=== PATIENT | female | born 1990 | race Hispanic/Latino ===

== ENCOUNTER 2018-04-07 06:00 | Day surgery (SDC) | payer BC ==
[2018-04-06 12:32] VITALS: BMI 31.8
[2018-04-07] MEDS ORDERED: Neomycin-Polymyxin 1 ML AMP ONE (06:41)
[2018-04-07] MEDS ORDERED: Bupivacaine PF 0.5% 30 ML VIAL ONE (06:41)
[2018-04-07] MEDS ORDERED: Fentanyl 100 MCG/2 ML VIAL ONE ×3 (07:09→09:51)
[2018-04-07] MEDS ORDERED: CEFAZOLIN 2 GM/50 ML BAG ONE (07:27)
[2018-04-07] MEDS ORDERED: HYDROcodone/Acetaminophen 5/325 mg Tablet ONE (12:28)
[2018-04-07] MEDS ORDERED: Promethazine HCl 25 MG/ML VIAL ONE (12:34)
--- NOTE | 2018-04-07 16:02 | OP ---
DATE OF PROCEDURE: 04/07/2018 PREOPERATIVE DIAGNOSIS: Bilateral painful bunions. POSTOPERATIVE DIAGNOSIS: Bilateral painful bunions. PROCEDURE PERFORMED: Bilateral bunionectomy. ANESTHESIA: General. DESCRIPTION OF PROCEDURE: The patient was given preoperative IV antibiotics, taken to the operating room, placed in supine position. Satisfactory general anesthesia was performed. Both feet, ankle, and legs were sterilely prepped and draped in usual fashion. The left foot was initially addressed. The left foot, ankle, and leg were exsanguinated and tourniquet at the proximal left leg was raised to 250 mmHg. Longitudinal incision was made over the 1st metatarsophalangeal joint down the distal aspect of the 1st metatarsal. Blunt dissection was made down to the thickened capsule and bursa on the medial aspect of the metatarsophalangeal joint. Portion of it approximately 4 mm was cut out of it. Periosteal elevation was performed. The joint was inspected and the joint itself had good articular cartilage. The bony bump on the medial aspect of the 1st metatarsal head was removed with an osteotome and smoothed down with a rongeur. A 2-cm incision was then made over the dorsum of the 1st web space and the soft tissue was released from the lateral aspect of the sesamoid and also from the lateral aspect of the proximal phalanx and the capsule of the 1st metatarsophalangeal joint allowing for the great toe to easily be moved into varus. Two smaller incisions were made just lateral to the 2nd metatarsal and under fluoroscopic visualization, two TightRope's were placed decreasing the intermetatarsal angle with the #2 FiberWire and the metal on the lateral aspect of the 2nd metatarsal and the medial aspect of the 1st metatarsal. The capsule was then tightened on the medial aspect of the 1st metatarsophalangeal joint and placing the greater toe in a much better position with just few degrees of valgus. The wounds were copiously irrigated. The foot was then checked using the C-arm, which verified good placement of the metal anchors that were attached to the #2 FiberWire and proper position of the great toe. Wounds were irrigated with antibiotic solution and then closed using 0 Vicryl in interrupted simple and [id number] sutures to repair the capsule on the medial aspect of 1st metatarsal and then the skin was closed with 3-0 Rapide. The wounds were then infiltrated with a total of 10 mL of 0.5% Marcaine plain. Sterile dressing was applied using Xeroform, 4x4s, Kerlix, and an Osorio wrap. Tourniquet was released and then the exact same procedure was performed on the right great toe. The patient was then awakened, extubated, and transferred to recovery room in stable condition. ESTIMATED BLOOD LOSS: None. COMPLICATION: None. Tourniquet time on the left was 43 minutes and on the right was 41 minutes. DISCHARGE MEDICATION: [place] 10 one every 6 hours as needed for pain #50. The patient may ambulate in her postoperative shoes, ambulating by putting most of her weight mainly in the heel. She will follow up in my office in 2 weeks. Job ID: [id number]
[2018-04-07] MEDS ORDERED: Lidocaine 1% PF 5 ML VIAL ONE (16:38)
[2018-04-07] MEDS ORDERED: PROPOFOL 200 MG/20 ML VIAL ONE (16:38)
[2018-04-07] MEDS ORDERED: Dexamethasone 20 MG/5 ML VIAL ONE (16:38)
[2018-04-07] MEDS ORDERED: Ondansetron PF 4 MG/2 ML Vial ONE (16:38)
[2018-04-07] MEDS ORDERED: Ketorolac Tromethamine 30 MG/ML VIAL ONE (16:38)
== END 2018-04-07 14:04 | disposition home or self-care (01) ==
LOC: SDC 06:00
PROVIDERS: ATTEND Orthopaedic Surgery
PROC: 0QBQ0ZZ Excision of Right Toe Phalanx, Open Approach (ICD-10-PCS; principal; 2018-04-07)
PROC: 0QBR0ZZ Excision of Left Toe Phalanx, Open Approach (ICD-10-PCS; principal; 2018-04-07)
DX: M21.611 Bunion of right foot (principal); M21.612 Bunion of left foot
CPT/HCPCS: 76001; 96374; J1100; J1885; J2001; J2405; J2550; J2704; J3010; S0020

== ENCOUNTER 2019-01-26 00:58 | Emergency (ER) | payer BC ==
[2019-01-26] MEDS ORDERED: Acetaminophen 500 MG TAB ONE (01:47)
--- NOTE | 2019-01-26 07:43 | RAD ---
3 views left ankle: 01/26/2019 COMPARISON: None HISTORY: Fall, trauma, pain FINDINGS: No fracture or dislocation. No radiopaque foreign body or subcutaneous gas. IMPRESSION: No acute findings.
== END 2019-01-26 01:53 | disposition home or self-care (01) ==
LOC: ERS 00:58
DX: S93.402A Sprain of unspecified ligament of left ankle, initial encounter (principal); X50.1XXA Overexertion from prolonged static or awkward postures, initial encounter

== ENCOUNTER 2021-10-12 13:29 | Emergency (ER) | payer BC | END 2021-10-12 14:41 | disposition home or self-care (01) | LOC: ERS 13:29 | DX: L55.0 Sunburn of first degree (principal) | CPT/HCPCS: 99282 ==

== ENCOUNTER 2021-11-08 09:25 | Emergency (ER) | payer BC ==
[2021-11-08] MEDS ORDERED: Ibuprofen 200 MG TAB ONE (09:31)
[2021-11-08] MEDS ORDERED: Acetaminophen 500 MG TAB ONE (09:31)
[2021-11-08] MEDS ORDERED: Bupivacaine 0.25% 10 ML VIAL ONE ×2 (11:07→11:08)
[2021-11-08] MEDS ORDERED: HYDROcodone/Acetaminophen 10/325 mg Tablet ONE (11:57)
[2021-11-08] MEDS ORDERED: Ketamine 50 MG/ML (10ML VIAL) ONE (12:34)
[2021-11-08] MEDS ORDERED: Ondansetron PF 4 MG/2 ML Vial ONE (12:34)
== END 2021-11-08 14:37 | disposition home or self-care (01) ==
LOC: ERS 09:25
DX: S52.571A Other intraarticular fracture of lower end of right radius, initial encounter for closed fracture (principal); X58.XXXA Exposure to other specified factors, initial encounter
CPT/HCPCS: 25605; 96374; 99152; J2405; S0020

== ENCOUNTER 2021-11-13 09:26 | Outpatient (CLI) | payer BC ==
[2021-11-13 10:29] LABS: BHCG - Serum Negative (NEGATIVE); Pregs Control Bar Appear? YES (CONTROL BAR)
[2021-11-13 10:30] LABS: Pregs Control Background? CLEAR/WHITE (CLR/WHITE)
== END 2021-11-13 09:27 | disposition home or self-care (01) ==
LOC: LABBT 09:26
PROVIDERS: ATTEND Orthopaedic Surgery Hand Surgery
DX: Z20.822 Contact with and (suspected) exposure to COVID-19 (principal)
CPT/HCPCS: 84703; 87811

== ENCOUNTER 2021-11-16 07:31 | Day surgery (SDC) | payer BC ==
[2021-11-16] MEDS ORDERED: Lidocaine 1% MPF 2 ML VIAL ONE (08:10)
[2021-11-16] MEDS ORDERED: Midazolam HCl 2 mg/2 ml Vial ONE (08:16)
[2021-11-16] MEDS ORDERED: Fentanyl 100 MCG/2 ML VIAL ONE (08:16)
[2021-11-16] MEDS ORDERED: Bacitracin Zinc Ointment 30 gm TUBE ONE (10:10)
[2021-11-16] MEDS ORDERED: Bupivacaine PF 0.5% 30 ML VIAL ONE (10:10)
[2021-11-16] MEDS ORDERED: Promethazine HCl 25 MG/ML VIAL ONE (10:15)
[2021-11-16] MEDS ORDERED: fentaNYL Citrate/PF 100 MCG/2 ML SYRINGE ONE (10:15)
[2021-11-16] MEDS ORDERED: Sodium Chloride 0.9% 100 ML ONE (10:19)
[2021-11-16] MEDS ORDERED: CEFAZOLIN 2 GM VIAL ONE (10:19)
[2021-11-16] MEDS ORDERED: Dexamethasone 20 MG/5 ML VIAL ONE (10:26)
[2021-11-16] MEDS ORDERED: Ketorolac Tromethamine 30 MG/ML VIAL ONE (10:26)
[2021-11-16] MEDS ORDERED: Lidocaine 1% PF 5 ML VIAL ONE (10:26)
[2021-11-16] MEDS ORDERED: ePHEDrine 50 MG/ML VIAL ONE (10:26)
[2021-11-16] MEDS ORDERED: Ondansetron PF 4 MG/2 ML Vial ONE (10:26)
[2021-11-16] MEDS ORDERED: Bupivacaine HCl 0.5%/Epinephrine 1:200,000/PF 30 ml Vial ONE (10:26)
[2021-11-16] MEDS ORDERED: ePHEDrine Sulfate 50 MG/10 ML VIAL ONE (12:42)
[2021-11-16] MEDS ORDERED: Promethazine HCl 25 MG/ML VIAL IM PRN (13:47)
[2021-11-16] MEDS ORDERED: HYDROmorphone 2 MG/ML VIAL SLOW IVP PRN (13:47)
[2021-11-16] MEDS ORDERED: Ondansetron HCl/PF 4 MG/2 ML Vial IVP PRN (13:47)
[2021-11-16] MEDS ORDERED: Promethazine HCl 25 MG/ML VIAL IVPB PRN (13:47)
[2021-11-16 17:37] LABS: ALT (SGPT) 28 U/L (8-55); AST (SGOT) 16 U/L (5-34); Albumin 4.5 g/dL (3.5-5.0); Alkaline Phosphatase 87 U/L (40-110); Anion Gap 15 mmol/L (10-20); BUN (Urea Nitrogen) 12 mg/dL (7.0-18.7); Bilirubin, Total 0.3 mg/dL (0.2-1.2); Calc. Creatinine Clearance 0 mL/min (70-130); Calcium 9.5 mg/dL (7.8-10.44); Carbon Dioxide 21 mmol/L (22-29); Chloride 105 mmol/L (98-107); Estimated GFR 100; Globulin 3.6 g/dL (2.4-3.5); Glucose 143 mg/dL (70-105); Potassium 3.3 mmol/L (3.5-5.1); Protein, Total 8.1 g/dL (6.0-8.3); Sodium 138 mmol/L (136-145)
== END 2021-11-16 17:50 | disposition home or self-care (01) ==
LOC: SDC 07:31
PROVIDERS: ATTEND Orthopaedic Surgery Hand Surgery
PROC: 0PSL04Z Reposition Left Ulna with Internal Fixation Device, Open Approach (ICD-10-PCS; principal; 2021-11-16)
PROC: 0PSJ04Z Reposition Left Radius with Internal Fixation Device, Open Approach (ICD-10-PCS; principal; 2021-11-16)
DX: S52.572A Other intraarticular fracture of lower end of left radius, initial encounter for closed fracture (principal); S52.615A Nondisplaced fracture of left ulna styloid process, initial encounter for closed fracture; W18.2XXA Fall in (into) shower or empty bathtub, initial encounter
CPT/HCPCS: 71045; 76000; 80053; 93005; 93010; C1713; C1776; C1894; J0690; J1100; J1885; J2250; J2405; J2550; J3010; J3490; S0020

== ENCOUNTER 2021-11-17 14:07 | Emergency (ER) | payer BC ==
[2021-11-17] MEDS ORDERED: Ondansetron ODT 4 MG TAB ONE (15:05)
[2021-11-17] MEDS ORDERED: Morphine 4 MG/ML VIAL ONE (15:05)
== END 2021-11-17 15:57 | disposition home or self-care (01) ==
LOC: ERS 14:07
DX: G89.18 Other acute postprocedural pain (principal); M25.532 Pain in left wrist; Z79.899 Other long term (current) drug therapy
CPT/HCPCS: 96372; 99283; J2270; Q0162

== ENCOUNTER 2022-05-13 09:19 | Outpatient (CLI) | payer BC ==
[2022-05-13 10:33] LABS: Hemoglobin 10.8 g/dL (12.0-15.5); Mean Corpuscular HGB CONC 30.9 g/dL (32.0-36.0); Mean Corpuscular Hemoglobin 23.4 pg (27.0-33.0); Mean Corpuscular Volume 75.9 fl (81.6-98.3); Mean Platelet Volume 11.1 fl (7.4-10.4); Platelet Count 199 10x3/uL (150-450); RBC Distribution Width 17.4 % (11.5-14.5); Red Blood Cell (RBC) Count 4.61 10x6/uL (3.90-5.03); White Blood Cell (WBC) Count 6.8 10x3/uL (3.5-10.5)
[2022-05-13 11:37] LABS: BHCG - Serum Negative (NEGATIVE); Pregs Control Background? CLEAR/WHITE (CLR/WHITE); Pregs Control Bar Appear? YES (CONTROL BAR)
== END 2022-05-13 09:20 | disposition home or self-care (01) ==
LOC: LABBT 09:19
PROVIDERS: ATTEND Orthopaedic Surgery Hand Surgery
DX: Z01.812 Encounter for preprocedural laboratory examination (principal); T84.84XA Pain due to internal orthopedic prosthetic devices, implants and grafts, initial encounter
CPT/HCPCS: 84703; 85027

== ENCOUNTER 2022-05-14 06:45 | Day surgery (SDC) | payer BC, OTHER ==
[2022-05-13 14:32] VITALS: BMI 29.5
[2022-05-14] MEDS ORDERED: Bacitracin Zinc Ointment 30 gm TUBE ONE (07:59)
[2022-05-14] MEDS ORDERED: Bupivacaine PF 0.5% 30 ML VIAL ONE (07:59)
[2022-05-14] MEDS ORDERED: Neomycin-Polymyxin 1 ML AMP ONE (07:59)
[2022-05-14] MEDS ORDERED: HYDROmorphone 0.5 MG/0.5 ML SYRINGE ONE (08:13)
[2022-05-14] MEDS ORDERED: Promethazine HCl 25 MG/ML VIAL ONE (08:13)
[2022-05-14] MEDS ORDERED: Sodium Chloride 0.9% 100 ML ONE (08:13)
[2022-05-14] MEDS ORDERED: CEFAZOLIN 2 GM VIAL ONE (08:13)
[2022-05-14] MEDS ORDERED: Ondansetron PF 4 MG/2 ML Vial ONE (08:18)
[2022-05-14] MEDS ORDERED: Lidocaine 1% PF 5 ML VIAL ONE (08:18)
[2022-05-14] MEDS ORDERED: Dexamethasone 20 MG/5 ML VIAL ONE (08:18)
[2022-05-14] MEDS ORDERED: ePHEDrine 50 MG/ML VIAL ONE (08:18)
[2022-05-14] MEDS ORDERED: PROPOFOL 200 MG/20 ML VIAL ONE (08:18)
[2022-05-14] MEDS ORDERED: Ketorolac Tromethamine 30 MG/ML VIAL ONE (08:18)
[2022-05-14] MEDS ORDERED: Fentanyl 100 MCG/2 ML VIAL ONE (10:26)
[2022-05-14] MEDS ORDERED: HYDROcodone/Acetaminophen 5/325 mg Tablet ONE (11:27)
== END 2022-05-14 12:55 | disposition home or self-care (01) ==
LOC: SDC 06:45
PROVIDERS: ATTEND Orthopaedic Surgery Hand Surgery
PROC: 0PPJ04Z Removal of Internal Fixation Device from Left Radius, Open Approach (ICD-10-PCS; principal; 2022-05-14)
PROC: 0PPL04Z Removal of Internal Fixation Device from Left Ulna, Open Approach (ICD-10-PCS; principal; 2022-05-14)
DX: T84.84XA Pain due to internal orthopedic prosthetic devices, implants and grafts, initial encounter (principal); Y79.3 Surgical instruments, materials and orthopedic devices (including sutures) associated with adverse incidents
CPT/HCPCS: J1100; J1170; J1885; J2405; J2550; J2704; J3010; J3490; S0020